=== PATIENT | male | born 1965 | race African-American/Black ===

== ENCOUNTER 2019-06-27 14:14 | Emergency (ER) | payer MEDICAID ==
[~2019-06-27] VITALS: Ht 188 cm; Wt 120.0 kg
[2019-06-27 19:05] VITALS: BP 150/65
== END 2019-06-27 19:06 | disposition home or self-care (01) ==
LOC: ER 14:14
DX: E11.621 Type 2 diabetes mellitus with foot ulcer (principal); B35.1 Tinea unguium; I10 Essential (primary) hypertension; E78.00 Pure hypercholesterolemia, unspecified
CPT/HCPCS: 99283